=== PATIENT | male | born 1960 | race Asian ===

== ENCOUNTER → 2018-04-26 15:05 | Outpatient (CLI) | payer OTHER, SELFPAY ==
--- NOTE | 2018-04-26 | DI.US.S_ITS ---
PROCEDURE: US HUSSEIN LIMITED SINGLE LEVEL INDICATIONS: CLAUDICATION BILAT TECHNIQUE: Ankle-brachial indices were obtained bilaterally and recorded. COMPARISONS: FINDINGS: Right ankle brachial index (HUSSEIN): 0.22 Left ankle brachial index (HUSSEIN): 3.0 IMPRESSION: Severe multifocal disease consistent with ischemic ulceration on the left and severe multilevel disease consistent with gangrene and tissue loss on the right. Dictated by: Bj CHILEL Interpreted: Amadeo Mcclure MD on 04/26/2018 at 17:25 Approved by: Amadeo Mcclure M.D. on 04/26/2018 at 18:29
== END ==
PROVIDERS: Visit Provider Family Medicine
DX: I70.243 Atherosclerosis of native arteries of left leg with ulceration of ankle (principal); L97.329 Non-pressure chronic ulcer of left ankle with unspecified severity; I70.261 Atherosclerosis of native arteries of extremities with gangrene, right leg; L97.319 Non-pressure chronic ulcer of right ankle with unspecified severity
CPT/HCPCS: 93922

== ENCOUNTER 2020-07-10 12:34 | Emergency (ER) | payer OTHER, SELFPAY ==
[2020-07-10] VITALS (32 sets, daily range): BP systolic 119–174; BP diastolic 59–85; PULSE 67–85; RESP 16–31; TEMP 36.2; O2SAT 94–100
--- NOTE | 2020-07-10 12:46 | DI.RAD.S_ITS ---
PROCEDURE: XR CHEST 1V INDICATIONS: chest pain TECHNIQUE: One view of the chest was acquired. COMPARISON: None. FINDINGS: Surgical changes and devices: None. Lungs and pleura: An incomplete inspiratory result is noted, causing a crowded appearance to the lung markings. No focal infiltrates are seen. No pneumothorax or significant pleural effusions are seen. Mediastinum: Mediastinal contours appear normal. Heart size is normal. Bones and chest wall: No suspicious bony lesions. Overlying soft tissues appear unremarkable. IMPRESSION: Limited portable chest examination, without a significant cardiopulmonary abnormality identified. Dictated by: Rey Mckeon M.D. on 07/10/2020 at 11:58 Approved by: Rey Mckeon M.D. on 07/10/2020 at 11:59
[2020-07-10] MEDS: ASPIRIN 81 MG CHEW TAB 324 MG PO (12:52)
[2020-07-10] MEDS: NITROGLYCERIN 0.4 MG SL TAB SL ×2 (12:52→13:05)
[2020-07-10 12:59] LABS: Add Manual Diff / Slide Review NO; Basophils Absolute Auto 100 /uL (0-100); Basophils Percent Auto 0.9 % (0-2); Eosinophils Absolute Auto 200 /uL (0-450); Eosinophils Percent Auto 1.5 % (2-4); Hematocrit 52.7 % (41-53); Lymphocytes Absolute Auto 2700 /uL (1100-4500); Lymphocytes Percent Auto 20.6 % (25-40); Mean Corpuscular HGB Conc 34.2 % (30-36); Mean Corpuscular Volume 93.7 fL (80-100); Monocytes Absolute Auto 800 /uL (0-900); Monocytes Percent Auto 6.1 % (3-14); Neutrophils Absolute Auto 9300 /uL (1500-7000); Neutrophils Percent Auto 70.9 % (50-75); Platelet Count 176 X10^3/uL (150-400); Red Blood Cell Count 5.63 X10^6/uL (4.5-5.9); Red Cell Distribution Width 12.7 % (11.6-14.8); White Blood Cell Count 13.1 X10^3/uL (4.5-11.0)
[2020-07-10 13:05] LABS: INR 1.3 (0.9-1.3); Prothrombin Time 14.6 SECONDS (10.1-12.7)
[2020-07-10 13:08] LABS: PTT Partial Thromboplastin Tim 33 SECONDS (26.4-36.2)
[2020-07-10 13:09] LABS: Alanine Aminotransferase 24 IU/L (<50); Albumin 4.4 g/dL (3.5-5.0); Albumin Globulin Ratio 1.5 (1.0-2.8); Alkaline Phosphatase 82 U/L (38-126); Aspartate Aminotransferase 29 IU/L (17-59); BUN Creatinine Ratio 13.5 (6-22); Bilirubin Total 0.5 mg/dL (0.2-1.3); Blood Urea Nitrogen 13 mg/dL (9-20); Calcium 9.9 mg/dL (8.4-10.2); Carbon Dioxide 26 mmol/L (22-32); Chloride 104 mmol/L (98-107); Creatine Kinase 57 U/L (55-170); Estimated Glomerular Filt Rate > 60.0 mL/min (>60); Glucose 156 mg/dL (70-100); Lipase 131 U/L (23-300); Potassium 4.5 mmol/L (3.4-5.1); Sodium 138 mmol/L (137-145); Total Protein 7.4 g/dL (6.3-8.2)
[2020-07-10 13:14] LABS: HEMOLYSIS 83 (0-50)
[2020-07-10 13:21] LABS: Troponin I 0.013 ng/mL (0.01-0.034)
[2020-07-10 13:43] LABS: NT-proBNP (BNP-Adult 18+) 20 pg/mL (<125)
[2020-07-10 14:19] LABS: COVID19 - ADMIT (NP swab/PCR) Negative (Negative)
--- NOTE | 2020-07-10 14:45 | ED_ITS ---
HPI - Chest Pain General Chief Complaint: Chest Pain Stated Complaint: Chest pains Time Seen by Provider: 07/10/20 14:45 Source: patient Mode of arrival: Ambulatory Limitations: language barrier History of Present Illness HPI narrative: This a 59-year-old male comes emergency department with complaint of chest pain patient states he has been having intermittent chest pain on off for the past 3 weeks he describes it is sporadic. Not really exacerbated by any particular factors. Patient states substernal and he gets tightness in his chest. He will take aspirin which is typically helpful and rest. Patient sta amairani he had an episode today lasted about 90 minutes, was increased level of chest tightness. He states that the pain felt similar to his prior heart attack but he did not have the other constellation such as nausea, shortness of breath and sweatiness with his prior heart attack. Chest pain was resolved with nitro x2 in the department. He denies any shortness of breath, no diaphoresis, no nausea or vomiting, pain did not radiate elsewhere. Patient states that he has been intermittently taking his home medications which include aspirin, cilostazol, lisinopril, metformin and metoprolol. Patient states he is also smoking about half pack daily tobacco. He had cardiac stents in 2009 after a heart attack. He also had aortic-fem bypass last September and he had a lobectomy on the right for cancer in his lungs he did have a stress test about a year and half ago. He had contacted his Cardiology group, he had not seen him in over a year. His screw machine operator single spindle has left the area and he is supposed to follow-up with a new screw machine operator single spindle on the 28 of July with an initial intake appointment with the nurse practitioner on the 22 of July. He follows with [facility] group and is supposed to see Dr. Irene Berumen for his new screw machine operator single spindle. His prior screw machine operator single spindle was Dr. Vang. Related Data Home Medications Medication Instructions Recorded Confirmed aspirin 81 mg PO DAILY 07/10/20 07/10/20 cilostazol 100 mg PO DAILY 07/10/20 07/10/20 lisinopril 10 mg PO DAILY 07/10/20 07/10/20 metformin 500 mg PO BID 07/10/20 07/10/20 metoprolol succinate 25 mg PO DAILY 07/10/20 07/10/20 Allergies Allergy/AdvReac Type Severity Reaction Status Date / Time No Known Drug Allergies Allergy Verified 07/10/20 14:07 Review of Systems Review of Systems ROS Unobtainable: All systems reviewed & are unremarkable except as noted in HPI and below Patient History Medical History (Updated 07/10/20 @ 15:48 by Farzaneh Hernandez DO) Myocardial infarct (~2009) Surgical History (Updated 07/10/20 @ 15:09 by Farzaneh Hernandez DO) H/O heart artery stent (~2009) S/P lobectomy of lung Social History Smoking Status: Current every day smoker Smoking Status: Current every day smoker alcohol intake frequency: 0-2 drinks per day Substance Use Type: does not use Exam Narrative Exam Narrative: GENERAL: Alert and oriented x three, obese, male in mild distress. HEENT: Head normocephalic, atraumatic, EOMI, pupils reactive, face symmetric, moist mucous membranes NECK: Supple, full range of motion CARDIOVASCULAR: Regular rate and rhythm without murmurs, rubs or gallops. RESPIRATORY: Breath sounds equal bilaterally, no wheezes rales or rhonchi. ABDOMEN: Soft, nontender. Normoactive bowel sounds all 4 quadrants. No guar ding or rebound, rigidity, no mass : No CVA tenderness EXTREMITIES: Normal range of motion, no edema. Neurovascularly intact NEUROLOGICAL: Cranial nerves II through XII grossly intact. Moving all extremities SKIN: Warm, dry, no petechiae, no rashes or lesions. Initial Vital Signs Initial Vital Signs: Vital Signs Temperature 97.1 F L 07/10/20 12:40 Pulse Rate 78 07/10/20 12:40 Respiratory Rate 18 07/10/20 12:40 Blood Pressure 174/85 H 07/10/20 12:40 Pulse Oximetry 99 07/10/20 12:40 Course Orders Ordered: ED Orders 07/10/20 12:46 XR chest 1V Stat EKG-12 Lead Stat 07/10/20 12:50 BNP [NT-proBNP (BNP-Adult 18+)] Stat Complete Blood Count AUTO DIFF Stat Comprehensive Metabolic Panel Stat Lipase Stat Magnesium Stat Partial Thromboplastin Time Stat Prothrombin Time INR Stat Troponin & CK Cardiac Panel Stat 07/10/20 12:58 COVID19 - ADMIT (INVENTORY SPECIALIST swab/PCR) Stat 07/10/20 13:00 EKG-12 Lead Stat 07/10/20 14:45 EKG-12 Lead Stat 07/10/20 14:55 Troponin I Stat Heparin Sodium/Dextrose (Heparin Drip) 25,000 unit in 500 mls @ 28.464 mls/hr IV CONT NATHANAEL; Protocol Last Admin: 07/10/20 15:59 Dose: 12 units/kg/hr, 28.464 mls/hr Documented by: RAFAL Nitroglycerin (Nitroglycerin 0.4 Mg Sl Tab) 0.4 mg SL [id number] PRN PRN Reason: Chest Pain Last Admin: 07/10/20 13:05 Dose: 0.4 mg Documented by: Admin: 07/10/20 12:52 Dose: 0.4 mg Documented by: RAFAL Discontinued Medications Aspirin (Aspirin 81 Mg Chew Tab) 324 mg PO NOW ONE Stop: 07/10/20 12:47 Last Admin: 07/10/20 12:52 Dose: 324 mg Documented by: RAFAL Clopidogrel Bisulfate (Clopidogrel 75 Mg Tablet) 600 mg PO NOW ONE Stop: 07/10/20 17:05 Last Admin: 07/10/20 17:12 Dose: 600 mg Documented by: RFAAL Heparin Sodium (Porcine) (Heparin 5,000 Unit/Ml Vial) 5,000 unit IV NOW ONE Stop: 07/10/20 15:46 Last Admin: 07/10/20 15:58 Dose: 5,000 unit Documented by: RAFAL Reevaluation(s) Reevaluation #1: Patient still chest pain free, repeat troponin is elevated. Patient does not have prior EKGs available but does have signs of old infarct consistent with history. No ST elevation appreciated. Patient has been having intermittent chest pain consistent with unstable angina. With a prolonged period today. Time: 15:47 Consultations Consultation #1: Spoke with Dr. Wilkins the hospitalist who accepts but would like me to chat with Cardiology. We discussed patient is currently chest pain f ree has continued to be so after 2 nitro here in the department. She does accept for transfer. Time: 16:55 Consultation #2: Spoke with Dr. Adamson cardiology, plan to see patient this evening after arrival. Discussed EKG today findings, labs, current clinical situation and that patient is still asymptomatic from chest pain at this time. He did ask to start Plavix 600 mg here in the department, patient has had aspirin is currently on heparin. No additional orders at this time. Time: 17:05 Vital Signs Vital signs: Vital Signs - 8 hr 07/10/20 12:40 07/10/20 12:47 07/10/20 12:52 Temperature 97.1 F L Pulse Rate 78 75 82 Respiratory Rate 18 22 Blood Pressure 174/85 H 174/85 H Pulse Oximetry 99 99 07/10/20 13:00 07/10/20 13:03 07/10/20 13:05 Temperature Pulse Rate 81 80 81 Respiratory Rate 24 24 23 Blood Pressure 135/64 144/70 H 140/74 Pulse Oximetry 98 98 97 07/10/20 13:12 07/10/20 13:15 07/10/20 13:30 Temperature Pulse Rate 79 78 73 Respiratory Rate 16 28 H 22 Blood Pressure 140/74 127/60 127/66 Pulse Oximetry 98 98 99 07/10/20 13:45 07/10/20 14:00 07/10/20 14:15 Temperature Pulse Rate 67 67 69 Respiratory Rate 28 H 23 29 H Blood Pressure 126/66 132/68 130/67 Pulse Oximetry 99 99 99 07/10/20 14:30 07/10/20 14:45 07/10/20 15:00 Temperature Pulse Rate 70 74 73 Respiratory Rate 31 H 27 H 21 Blood Pressure 127/61 132/65 141/70 H Pulse Oximetry 98 98 07/10/20 15:15 07/10/20 15:30 07/10/20 15:45 Temperature Pulse Rate 72 69 69 Respiratory Rate 24 22 24 Blood Pressure 145/69 H 154/74 H Pulse Oximetry 99 100 07/10/20 15:55 07/10/20 16:00 07/10/20 16:15 Temperature Pulse Rate 71 67 73 Respiratory Rate 18 17 20 Blood Pressure 163/71 H 142/64 H 146/72 H Pulse Oximetry 07/10/20 16:30 07/10/20 16:45 07/10/20 17:00 Temperature Pulse Rate 75 73 76 Respiratory Rate 28 H 25 H 24 Blood Pressure 133/74 133/70 137/73 Pulse Oximetry 99 97 97 07/10/20 17:15 07/10/20 17:30 03/27/21 17:45 Temperature Pulse Rate 81 71 71 Respiratory Rate 28 H 27 H 22 Blood Pressure 132/70 129/71 132/76 Pulse Oximetry 97 98 97 07/10/20 18:00 Temperature Pulse Rate 69 Respiratory Rate 27 H Blood Pressure 119/61 Pulse Oximetry 95 MDM - Chest Pain Lab Data Attestation: I reviewed the patient's lab results. Result diagrams: 07/10/20 12:50 07/10/20 12:50 Labs: Lab Results 07/10/20 07/10/20 07/10/20 Range/Units 12:50 12:50 12:50 WBC 13.1 H (4.5-11.0) X10^3/uL RBC 5.63 (4.5-5.9) X10^6/uL Hgb 18.0 H (13.5-17.5) g/dL Hct 52.7 (41-53) % MCV 93.7 (80-100) fL MCH 32.0 (26-34) PG MCHC 34.2 (30-36) % RDW 12.7 (11.6-14.8) % Plt Count 176 (150-400) X10^3/uL Neut % (Auto) 70.9 (50-75) % Lymph % (Auto) 20.6 L (25-40) % Charlton % (Auto) 6.1 (3-14) % Eos % (Auto) 1.5 L (2-4) % Baso % (Auto) 0.9 (0-2) % Neut # (Auto) 9300 H (5750-0906) /uL Lymph # (Auto) 2700 (2706-7336) /uL Charlton # (Auto) 800 (0-900) /uL Eos # (Auto) 200 (0-450) /uL Baso # (Auto) 100 (0-100) /uL PT 14.6 H (10.1-12.7) SECONDS INR 1.3 (0.9-1.3) APTT 33 (26.4-36.2) SECONDS Sodium 138 (137-145) mmol/L Potassium 4.5 (3.4-5.1) mmol/L Chloride 104 (98-107) mmol/L Carbon Dioxide 26 (22-32) mmol/L BUN 13 (9-20) mg/dL Creatinine 0.96 (0.66-1.25) mg/dL Estimated GFR > 60.0 (>60) mL/min BUN/Creatinine Ratio 13.5 (6-22) Glucose 156 H (70-100) mg/dL Calcium 9.9 (8.4-10.2) mg/dL Magnesium 2.0 (1.6-2.3) mg/dL Total Bilirubin 0.5 (0.2-1.3) mg/dL AST 29 (17-59) IU/L ALT 24 (<50) IU/L Alkaline Phosphatase 82 (38-126) U/L Total Creatine Kinase 57 (55-170) U/L CK-MB (CK-2) TNP CK-MB (CK-2) Rel Index TNP Troponin I 0.013 (0.01-0.034) ng/mL NT-Pro-B Natriuret Pep (<125) pg/mL Total Protein 7.4 (6.3-8.2) g/dL Albumin 4.4 (3.5-5.0) g/dL Globulin 3.0 (1.7-4.1) g/dL Albumin/Globulin Ratio 1.5 (1.0-2.8) Lipase 131 (23-300) U/L SARS-CoV-2 (PCR) (Negative) 07/10/20 07/10/20 07/10/20 Range/Units 12:50 12:58 14:55 WBC (4.5-11.0) X10^3/uL RBC (4.5-5.9) X10^6/uL Hgb (13.5-17.5) g/dL Hct (41-53) % MCV (80-100) fL MCH (26-34) PG MCHC (30-36) % RDW (11.6-14.8) % Plt Count (150-400) X10^3/uL Neut % (Auto) (50-75) % Lymph % (Auto) (25-40) % Charlton % (Auto) (3-14) % Eos % (Auto) (2-4) % Baso % (Auto) (0-2) % Neut # (Auto) (5314-1985) /uL Lymph # (Auto) (4811-8604) /uL Charlton # (Auto) (0-900) /uL Eos # (Auto) (0-450) /uL Baso # (Auto) (0-100) /uL PT (10.1-12.7) SECONDS INR (0.9-1.3) APTT (26.4-36.2) SECONDS Sodium (137-145) mmol/L Potassium (3.4-5.1) mmol/L Chloride (98-107) mmol/L Carbon Dioxide (22-32) mmol/L BUN (9-20) mg/dL Creatinine (0.66-1.25) mg/dL Estimated GFR (>60) mL/min BUN/Creatinine Ratio (6-22) Glucose (70-100) mg/dL Calcium (8.4-10.2) mg/dL Magnesium (1.6-2.3) mg/dL Total Bilirubin (0.2-1.3) mg/dL AST (17-59) IU/L ALT (<50) IU/L Alkaline Phosphatase (38-126) U/L Total Creatine Kinase (55-170) U/L CK-MB (CK-2) CK-MB (CK-2) Rel Index Troponin I 1.190 H* (0.01-0.034) ng/mL NT-Pro-B Natriuret Pep 20 (<125) pg/mL Total Protein (6.3-8.2) g/dL Albumin (3.5-5.0) g/dL Globulin (1.7-4.1) g/dL Albumin/Globulin Ratio (1.0-2.8) Lipase (23-300) U/L SARS-CoV-2 (PCR) Negative (Negative) Imaging Data Chest x-ray: Radiologist's Impression: [address] [id number] ReportSigned Patient: PREMA VALVERDE#: [id number]: 1Acct:[id number]/Sex: 59 / MDate of Service: 07/10/20Loc: EDAccession Number: [id number] Procedure: XR chest 1V Ordering Provider: Farzaneh Hernandez D.O. PROCEDURE: XR CHEST 1V INDICATIONS: chest pain TECHNIQUE: One view of the chest was acquired. COMPARISON: None. FINDINGS: Surgical changes and devices: None. Lungs and pleura: An incomplete inspiratory result is noted, causing a crowded appearance to the lung markings. No focal infiltrates are seen. No pneumothorax or significant pleural effusions are seen. Mediastinum: Mediastinal contours appear normal. Heart size is normal. Bones and chest wall: No suspicious bony lesions. Overlying soft tissues appear unremarkable. IMPRESSION: Limited portable chest examination, without a significant cardiopulmonary abnormality identified. Dictated by: Rey Mckeon M.D. on 07/10/2020 at 11:58 Approved by: Rey Mckeon M.D. on 07/10/2020 at 11:59 ECG Data Attestation: I personally reviewed and interpreted this ECG as follows: Prior ECG tracings: not available for review Interpretation: Sinus rhythm rate of 72 ME 162 QRS of 98 QTC of 409. No clear ST-in some J-point elevation in 2 3 AVF. No depression or reciprocal changes appreciated. Repeat EKG shows similar findings with no acute ST elevation depression. Patient does appear to have a Q-wave in 2 3 and AVF which is also present on prior an RSR in V1. Which is also present on prior. EKG 3. Sinus rhythm rate of 68 P are 168 QRS of 100 QTC 416. Q-wave is present, no other acute ST changes appreciated. MDM Narrative Medical decision making narrative: This is a 59-year-old male who comes in with intermittent chest pain and episode of 90 minutes of chest pain today which resolved after 2 nitro in the department. Patient has a known cardiac history, stent in 2009, aortic bypass along with lobectomy for lung cancer last year and a half. Patient has been nonadherent with his medications, he continues to smoke tobacco. He was in the process of rete establishing follow-up with his cardiology team at [place] and came today because his chest pain did not resolve. Initial troponin was negative EKG showed J-point elevation with possible concerning changes at 2 3 AVF although there were no priors for comparison and no elevation greater than 1 mm. Patient's chest pain has continued to be resolved since nitro. Spoke with the hospitalist as well as Cardiology they did ask to add Plavix on top of his aspirin and heparin here today and for cardiology plan for catheterization likely in the morning. Patient is updated and aware of plan and comfortable with transfer and has continued to be chest pain free in department while awaiting transport. Discharge Plan Departure Patient Disposition: Xfer Acute Care Hospital Clinical Impression: Myocardial infarction Prescriptions: No Action cilostazol 100 mg Tablet 100 mg PO DAILY RF: 0 lisinopril 10 mg Tablet 10 mg PO DAILY RF: 0 aspirin 81 mg Tablet 81 mg PO DAILY RF: 0 metoprolol succinate 25 mg Tablet Extended Release 24 Hr 25 mg PO DAILY RF: 0 metformin 500 mg tablet extended release 24 hr 500 mg PO BID RF: 0 Referrals: Luis Alberto Valencia MD [Primary Care Provider] -
[2020-07-10] MEDS: HEPARIN 5,000 UNIT/ML VIAL 5000 UNIT IV (15:58)
[2020-07-10] MEDS: HEPARIN DRIP 25,000 UNIT/500 ML IV.SOLN 28.464 UNIT IV (15:59)
[2020-07-10] MEDS: CLOPIDOGREL 75 MG TABLET 600 MG PO (17:12)
== END 2020-07-10 19:33 | disposition short-term general hospital (02) ==
PROVIDERS: Emergency Provider Emergency Medicine; PCP Internal Medicine
DX: I21.9 Acute myocardial infarction, unspecified (principal); Z95.1 Presence of aortocoronary bypass graft; Z91.14 Patient's other noncompliance with medication regimen; F17.210 Nicotine dependence, cigarettes, uncomplicated; Z20.822 Contact with and (suspected) exposure to COVID-19
CPT/HCPCS: 36415; 71045; 80053; 82550; 83690; 83735; 83880; 84484; 85025; 85610; 85730; 87635; 93005; 96374; 99284; 99285; J1644